=== PATIENT | female | born 1995 | race African-American/Black ===

== ENCOUNTER 2022-11-28 12:40 | Outpatient (CLI) | payer OTHER ==
--- NOTE | 2022-11-28 13:32 | XRAY Report ---
PROCEDURE: Finger(s) RT INDICATIONS: OTHER SPRAIN OF RIGHT LITTLE FINGER TECHNIQUE: AP hand, 2 views of the fifth finger(s) acquired. COMPARISON: None. FINDINGS: Bones: No fractures or dislocations. No suspicious bony lesions. Soft tissues: No suspicious soft tissue calcifications or masses. IMPRESSION: No acute bony abnormality. Reviewed by: Mayco Polanco on 11/28/2022 1:31 PM PDT Approved by: Mayco Polanco on 11/28/2022 1:31 PM PDT Station ID: [id number]
== END 2022-11-28 23:59 | disposition home or self-care (01) ==
LOC: DI 12:40
PROVIDERS: ATTEND Physician Assistant Medical
DX: S63.696A Other sprain of right little finger, initial encounter (principal)